=== PATIENT | female | born 1960 | race Caucasian/White ===

== ENCOUNTER 2021-10-15 15:22 | Emergency (ER) | payer BC ==
--- OUTSIDE RECORDS SUMMARY | 2021-10-15 15:28 | XMS REPORT | Continuity of Care Document ---
:1960 Author Organization [facility] Address [address] [place] [address] Dr. Hernández [address] [place] [address] Care Team Providers Name Role Phone ZACK Attending Clinician Unavailable RUSTY Attending Clinician Unavailable DRU Attending Clinician Unavailable ZACK Admitting Clinician Unavailable Problems This patient has no known problems. Allergies, Adverse Reactions, Alerts This patient has no known allergies or adverse reactions. Medications This patient has no known medications. Procedures This patient has no known procedures. Encounters Start End Encounter Admission Attending Care Care Encounter Source Date/Time Date/Time Type Type Clinicians Facility Department ID 2021-06-28 2021-06-28 Outpatient [facility] [id number] [place] 00:00:00 00:00:00 BECKI [address] 2021-06-22 2021-06-22 Outpatient [facility] [id number] [place] 00:00:00 00:00:[address] 2020-12-08 2020-12-08 Outpatient [facility] [id number] [place] 00:00:00 00:00:00 BECKI [address] 2020-11-13 2020-11-13 [id number] [place] 00:00:00 00:00:00 DEEPALI [address] 2020-10-25 2020-10-25 Outpatient [facility] [id number] [place] 00:00:00 00:00:[address] 2020-06-04 2020-06-04 Outpatient [facility] [id number] [place] 00:00:00 00:00:00 BECKI [address] 2019-12-16 2019-12-16 [id number] [place] 00:00:00 00:00:00 ZE [address] 2019-12-02 2019-12-02 Outpatient [facility] [id number] [place] 00:00:00 00:00:00 BECKI [address] 2019-11-19 2019-11-19 Outpatient [facility] [id number] [place] 00:00:00 00:00:00 BECKI [address] 2019-11-11 2019-11-11 Outpatient [facility] [id number] [place] 00:00:00 00:00:[address] Results This patient has no known results.
[2021-10-15] MEDS ORDERED: CODEINE 30MG/APAP 300MG TAB ONE ×2 (17:50→18:45)
--- NOTE | 2021-10-15 18:11 | RAD REPORT ---
EXAM DESCRIPTION: RAD - Tib Fib Right - 10/15/2021 5:40 pm CLINICAL HISTORY: Right leg pain FINDINGS: No fracture is seen
--- NOTE | 2021-10-15 18:13 | RAD REPORT ---
EXAM DESCRIPTION: Ribs Right - 10/15/2021 5:40 pm CLINICAL HISTORY: Right rib pain FINDINGS: No fracture is seen
--- NOTE | 2021-10-15 18:39 | EDPHYS ---
Physician Documentation [facility] Name: Yanelis Alcaraz Age: 61 yrs Sex: Female : 1960 Arrival Date: 10/15/2021 Time: 15:56 Bed 11 Private MD: ED Physician Joe Whittaker HPI: 10/15 16:45 This 61 yrs old Female presents to ER via Ambulatory with complaints of Fall Injury, cp Shoulder Injury. 16:45 Details of fall: The patient fell from an upright position, while walking. cp 16:45 Onset: The symptoms/episode began/occurred this morning. cp 16:45 Associated injuries: The patient sustained injury to the abdomen, specifically the cp posterior aspect of right lateral abdomen, anterior aspect of right lateral abdomen and right upper quadrant, right lower leg. Patient reports trip and fall onto right side of body and right lower leg this morning while attempting to walk step over baby gate. No reported LOC but patient reports striking face against laminate floor. Patient reports she does take Eliquis. Historical: - Allergies: 16:14 Vicodin HP; ap3 - Home Meds: 16:14 Spiriva Respimat 2.5 mcg/actuation inhalation mist [Active]; montelukast 10 mg oral tab ap3 1 tab once daily [Active]; potassium chloride 20 mEq oral TbTQ [Active]; Lasix 40 mg Oral tab 1 tab once daily [Active]; Eliquis 5 mg oral tab 1 tab 2 times per day [Active]; bupropion HCl 150 mg Oral Tb24 1 tab once daily [Active]; metformin 500 mg Oral tab 1 tab 2 times per day [Active]; fenofibrate 160 mg oral tab 1 tab once daily [Active]; metoprolol tartrate 50 mg Oral tab 1 tab 2 times per day [Active]; diltiazem HCl 360 mg Oral cp24 1 cap once daily [Active]; - PMHx: 16:14 Hypertensive disorder; Atrial fibrillation; breast cancer X's 2-Chemo and radiation ap3 treatment; Osteoarthritis; Sleep apnea; acid reflux; 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 - Social history:: Smoking status: Patient denies any tobacco usage or history of. - Immunization history: Last tetanus immunization: - up to date. ROS: 17:00 Constitutional: Negative for body aches, chills, fever, poor PO intake. cp 17:00 Eyes: Negative for injury, pain, redness, and discharge. cp 17:00 Neck: Negative for pain with movement, pain at rest, stiffness. 17:00 Cardiovascular: Negative for chest pain, palpitations. 17:00 Respiratory: Negative for cough, shortness of breath, wheezing. 17:00 Abdomen/GI: Positive for abdominal pain, of the posterior aspect of right lateral abdomen, anterior aspect of right lateral abdomen and right upper quadrant, Negative for nausea, vomiting, and diarrhea. 17:00 MS/extremity: Positive for pain, of the right lower leg. 17:00 Neuro: Negative for altered mental status, dizziness, headache, numbness, syncope, weakness. 17:00 All other systems are negative. Exam: 17:05 Constitutional: The patient appears in no acute distress, alert, awake, cp non-diaphoretic, non-toxic, well developed, well nourished, overweight 17:05 Head/Face: Normocephalic, atraumatic. cp 17:05 Neck: C-spine: vertebral tenderness, is not appreciated, crepitus, is not appreciated, ROM/movement: is normal, is supple, without pain, no range of motions limitations, no nuchal rigidity. 17:05 Chest/axilla: Inspection: normal, Palpation: crepitus, is not appreciated, tenderness, that is moderate, of the right lower lateral rib area. 17:05 Cardiovascular: Rate: normal. 17:05 Respiratory: the patient does not display signs of respiratory distress, Respirations: normal, no use of accessory muscles, no retractions. 17:05 Abdomen/GI: Inspection: abdomen appears normal, Palpation: soft, in all quadrants, moderate abdominal tenderness, in the right upper quadrant and right upper lateral abdomen, rebound tenderness, is not appreciated, voluntary guarding, is elicited in the right upper quadrant and right upper lateral abdomen. 17:05 Neuro: Orientation: to person, place \T\ time. Mentation: is normal. Vital Signs: 16:13 BP 132 / 90; Pulse 88; Resp 17; Temp 97.7; Pulse Ox 100% ; Weight 86.18 kg; Height 5 ap3 ft. 6 in. (167.64 cm); Pain 7/10; 16:13 Body Mass Index 30.67 (86.18 kg, 167.64 cm) ap3 Axtell Coma Score: 16:21 Eye Response: spontaneous(4). Verbal Response: oriented(5). Motor Response: obeys ap3 commands(6). Total: 15. Trauma Score (Adult): 16:21 Eye Response: spontaneous(1); Verbal Response: oriented(1); Motor Response: obeys ap3 commands(2); Systolic BP: > 89 mm Hg(4); Respiratory Rate: 10 to 29 per min(4); Axtell Score: 15; Trauma Score: 12 MDM: 16:34 Patient medically screened. cp 17:20 Refusal of service: The patient/guardian displays adequate decision making capability cp and despite a detailed discussion of alternatives, benefits, risks, and consequences refuses: CT Scan, all lab tests, requests xrays of rib area and right lower leg. 17:30 Differential diagnosis: closed head injury, contusion, fracture, multiple trauma. cp 18:37 Data reviewed: vital signs, nurses notes, radiologic studies, plain films. cp 18:37 Test interpretation: by ED physician or midlevel provider: plain radiologic studies. cp Counseling: I had a detailed discussion with the patient and/or guardian regarding: the historical points, exam findings, and any diagnostic results supporting the discharge/admit diagnosis, radiology results, to return to the emergency department if symptoms worsen or persist or if there are any questions or concerns that arise at home. 10/15 17:13 Order name: XRAY Ribs RIGHT; Complete Time: 18:21 cp 10/15 18:21 Interpretation: Report reviewed. cp 10/15 17:27 Order name: Tib Fib Right; Complete Time: 18:21 EDMS 10/15 18:22 Interpretation: Reviewed. cp Administered Medications: 17:12 Not Given (Physician Discretion): fentaNYL (PF) 25 mcg IVP once; RASS on ADMIN: cp Combtv4, Very Agttd3, Agttd2, Rstlss1, AlertClm0, Drwsy-1, Lt Sdtn-2, Mod Sdtn-3, Dp Sdtn-4, UnArsble-5 17:49 Drug: Tylenol #3 (300 mg-30 mg) 2 tabs Route: PO; jl7 18:48 Drug: Lidoderm Patch 5 % (700 mg/patch) 1 patches Route: Topical; Site: anterior chest ap3 wall; Disposition: 19:12 Co-signature as Attending Physician, Joe Whittaker MD I agree with the assessment and kdr plan of care. Disposition Summary: 10/15/21 18:38 Discharge Ordered Location: Home cp Problem: new cp Symptoms: have improved cp Condition: Stable cp Diagnosis - Fall on same level, unspecified cp - Contusion of right lower leg cp - Chest pain, unspecified cp - Abdominal pain, unspecified cp Followup: cp - With: Private Physician - When: 2 - 3 days - Reason: Recheck today's complaints Discharge Instructions: - Discharge Summary Sheet cp - Rib Contusion cp - Fall Prevention in the Home, Adult cp - Understanding Your Risk for Falls cp Forms: - Medication Reconciliation Form cp - Thank You Letter cp - Antibiotic Education cp - Prescription Opioid Use cp Prescriptions: - Lidoderm 5 % Topical adhesive patch,medicated - apply 1 patch by TOPICAL route once daily; 1 box; Refills: 0, Product Selection cp Permitted - Ibuprofen 800 mg Oral Tablet - take 1 tablet by ORAL route every 8 hours As needed take with food; 30 tablet; cp Refills: 0, Product Selection Permitted - Cyclobenzaprine 10 mg Oral Tablet - take 1 tablet by ORAL route every 8 hours As needed; 20 tablet; Refills: 0, cp Product Selection Permitted - Tramadol 50 mg Oral Tablet - take 1 tablet by ORAL route every 8 hours as needed; 12 tablet; Refills: 0, cp Product Selection Permitted Signatures: Dispatcher [employer] [facility] Joe Whittaker MD MD kdr Page, Corey, PA PA cp Michael Kent, RN RN jl7 Jaja Espitia RN RN ap3 Corrections: (The following items were deleted from the chart) 17:14 16:34 Labs collected and sent ordered. cp jl7 17:15 16:34 CBC+H.LAB.BRZ ordered. EDMS EDMS 17:16 16:34 BASIC METABOLIC PANEL+C.LAB.BRZ ordered. EDMS EDMS 17:16 16:34 TYPE AND SCREEN+BB.LAB.BRZ ordered. EDMS EDMS 17:16 16:34 PROTIME (+INR)+COAG.LAB.BRZ ordered. EDMS EDMS 17: 16:34 PTT, ACTIVATED+COAG.LAB.BRZ ordered. EDMS EDMS 17: 16:34 Tib Fib Left+RAD.RAD.BRZ ordered. EDMS EDMS 17:30 16:35 Head C Spine CAP W Con+CT.RAD.BRZ ordered. EDMS EDMS
--- NOTE | 2021-10-15 18:39 | ER ---
Nurse's Notes [facility] Name: Yanelis Alcaraz Age: 61 yrs Sex: Female : 1960 Arrival Date: 10/15/2021 Time: 15:56 Bed 11 Private MD: Diagnosis: Fall on same level, unspecified;Contusion of right lower leg;Chest pain, unspecified;Abdominal pain, unspecified Presentation: 10/15 16:13 Chief complaint: Patient states: she fell this morning hitting her knee and right side ap3 of ribs. Patient complains of pain in right leg and right ribs. Patient denies hitting her head and states there was no LOC. Coronavirus screen: At this time, the client does not indicate any symptoms associated with coronavirus-19. Ebola Screen: No symptoms or risks identified at this time. Initial Sepsis Screen: Does the patient meet any 2 criteria? No. Patient's initial sepsis screen is negative. Does the patient have a suspected source of infection? No. Patient's initial sepsis screen is negative. Risk Assessment: Do you want to hurt yourself or someone else? Patient reports no desire to harm self or others. Onset of symptoms was October 15, 2021. 16:13 Method Of Arrival: Ambulatory ap3 16:13 Acuity: CONCHA 3 ap3 16:22 Care prior to arrival: None. Mechanism of Injury: Fall from standing position. Trauma ap3 event details: Injury occurred in the [facility], Injury occurred: at home. Injury occurred: October 15, 2021. Triage Assessment: 16:20 General: Appears in no apparent distress. Behavior is calm, cooperative, appropriate ap3 for age. Pain: Complains of pain in diaphragm, right breast and right leg. Neuro: Level of Consciousness is awake, alert, obeys commands, Oriented to person, place, time, situation, Speech is normal. Respiratory: Airway is patent Respiratory effort is even, unlabored. Musculoskeletal: Swelling present in right knee. Historical: - Allergies: 16:14 Vicodin HP; ap3 - Home Meds: 16:14 Spiriva Respimat 2.5 mcg/actuation inhalation mist [Active]; montelukast 10 mg oral tab ap3 1 tab once daily [Active]; potassium chloride 20 mEq oral TbTQ [Active]; Lasix 40 mg Oral tab 1 tab once daily [Active]; Eliquis 5 mg oral tab 1 tab 2 times per day [Active]; bupropion HCl 150 mg Oral Tb24 1 tab once daily [Active]; metformin 500 mg Oral tab 1 tab 2 times per day [Active]; fenofibrate 160 mg oral tab 1 tab once daily [Active]; metoprolol tartrate 50 mg Oral tab 1 tab 2 times per day [Active]; diltiazem HCl 360 mg Oral cp24 1 cap once daily [Active]; - PMHx: 16:14 Hypertensive disorder; Atrial fibrillation; breast cancer X's 2-Chemo and radiation ap3 treatment; Osteoarthritis; Sleep apnea; acid reflux; 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 - Social history:: Smoking status: Patient denies any tobacco usage or history of. - Immunization history: Last tetanus immunization: - up to date. Screenin:21 Abuse screen: Denies threats or abuse. Nutritional screening: No deficits noted. ap3 Tuberculosis screening: No symptoms or risk factors identified. 16:22 Fall Risk Fall in past 12 months (25 points). No secondary diagnosis (0 pts). ap3 Ambulatory Aid- None/Bed Rest/Nurse Assist (0 pts). Gait- Weak (10 pts.). Mental Status- Oriented to own ability (0 pts). Total Rubin Fall Scale indicates Low Risk Score (25-44 pts). Fall prevention measures have been instituted. Side Rails Up X 2 Frequent Obs/Assesments occuring Family Present and informed to notify staff if they need to leave bedside As available Patient and Family Educated on Fall Prevention Program and strategies. Primary Survey: 16:21 NO uncontrolled hemorrhage observed. Breathing/Chest: Respiratory pattern: regular, ap3 Respiratory effort: spontaneous. Circulation: Skin color: pink, Skin temperature: warm, dry. Disability Alert. Exposure/Environment: A warming method has been applied: A warm blanket has been provided to the patient. 18:48 Reassessment Breathing/Chest Respiratory pattern Regular. ap3 Vital Signs: 16:13 BP 132 / 90; Pulse 88; Resp 17; Temp 97.7; Pulse Ox 100% ; Weight 86.18 kg; Height 5 ap3 ft. 6 in. (167.64 cm); Pain 7/10; 16:13 Body Mass Index 30.67 (86.18 kg, 167.64 cm) ap3 Garrison Coma Score: 16:21 Eye Response: spontaneous(4). Verbal Response: oriented(5). Motor Response: obeys ap3 commands(6). Total: 15. Trauma Score (Adult): 16:21 Eye Response: spontaneous(1); Verbal Response: oriented(1); Motor Response: obeys ap3 commands(2); Systolic BP: > 89 mm Hg(4); Respiratory Rate: 10 to 29 per min(4); Highwood Score: 15; Trauma Score: 12 ED Course: 15:56 Patient arrived in ED. mr 16:14 Triage completed. ap3 16:22 Arm band placed on right wrist. ap3 16:22 Patient maintains SpO2 saturation greater than 95% on room air. ap3 16:28 Yonatan Pantoja PA is PHCP. cp 16:28 Joe Whittaker MD is Attending Physician. cp 17:02 Michael Kent RN is Primary Nurse. jl7 17:39 XRAY Ribs RIGHT In Process Unspecified. EDMS 17:39 Tib Fib Right In Process Unspecified. EDMS 18:48 No provider procedures requiring assistance completed. Patient did not have IV access ap3 during this emergency room visit. 18:49 Patient has correct armband on for positive identification. ap3 18:49 Thermoregulation: warm blanket given to patient. ap3 Administered Medications: 17:12 Not Given (Physician Discretion): fentaNYL (PF) 25 mcg IVP once; RASS on ADMIN: cp Combtv4, Very Agttd3, Agttd2, Rstlss1, AlertClm0, Drwsy-1, Lt Sdtn-2, Mod Sdtn-3, Dp Sdtn-4, UnArsble-5 17:49 Drug: Tylenol #3 (300 mg-30 mg) 2 tabs Route: PO; jl7 18:48 Drug: Lidoderm Patch 5 % (700 mg/patch) 1 patches Route: Topical; Site: anterior chest ap3 wall; Intake: 18:49 PO: 0ml; Total: 0ml. ap3 Output: 18:49 Urine: 0ml; Total: 0ml. ap3 Outcome: 18:38 Discharge ordered by . cp 18:48 Discharged to home ambulatory, with family. ap3 18:48 Condition: good 18:48 Discharge instructions given to patient, family, Instructed on discharge instructions, follow up and referral plans. medication usage, Demonstrated understanding of instructions, follow-up care, medications, Prescriptions given X 4. 18:49 Patient's length of stay in the Emergency Department was greater than 2 hours. ap3 Patient's length of stay was extended due to staffing issues within the emergency department. 18:51 Patient left the ED. ap3 Signatures: Dispatcher [employer] [facility] Dayana Gordillo mr Yonatan Pantoja, Michael James cp RN RN jl7 Jaja Espitia RN RN ap3
[2021-10-15] MEDS ORDERED: LIDOCAINE 4% PATCH ONE (18:47)
[2021-10-15 18:55] VITALS: BP 132/90; TEMP 97.7; O2SAT 100
== END 2021-10-15 18:51 | disposition home or self-care (01) ==
LOC: ER 15:22
DX: R07.9 Chest pain, unspecified (principal); S80.11XA Contusion of right lower leg, initial encounter; W18.30XA Fall on same level, unspecified, initial encounter; I10 Essential (primary) hypertension; I48.91 Unspecified atrial fibrillation; Z85.3 Personal history of malignant neoplasm of breast; Z79.01 Long term (current) use of anticoagulants; Z88.5 Allergy status to narcotic agent
CPT/HCPCS: 99284